=== PATIENT | male | born 1960 | race Caucasian/White ===

== ENCOUNTER → 2017-07-09 13:40 | Outpatient (CLI) | payer OTHER ==
[2013-09-16 15:46] VITALS: BMI 39.8
[~2017-07-09 13:40] MED LIST: FLAGYL500 MG PO; LEVAQUIN500 MG PO; NORCO 10/325 TA1 TA1 PO; PERCOCET 10/3251 TA1 PO; PRINIVIL20 MG PO; XANAX0.5 MG PO
== END | disposition home or self-care (01) ==
LOC: D.RT 13:40
DX: J44.9 Chronic obstructive pulmonary disease, unspecified (principal)

== ENCOUNTER 2020-05-17 17:17 | Observation (INO) | payer OTHER ==
[~2020-05-17] VITALS: Ht 177.8 cm; Wt 143.8 kg
[2020-05-17] MEDS ORDERED: BUMEX2 MG PO (17:37)
[2020-05-17] MEDS ORDERED: KENALOG 0.1 % 115 GM TOPICAL (17:38)
[2020-05-17] MEDS ORDERED: TEMOVATE 0.05%15 G1 TOPICAL (17:38)
[2020-05-17] MEDS ORDERED: CHANTIX 1 MG TAB1 MG PO (17:39)
[2020-05-17] MEDS ORDERED: IPRAT-ALBUT 0.5-3 ML UPD (17:39)
[2020-05-17] MEDS ORDERED: GLUCOPHAGE500 MG PO (17:39)
[2020-05-17] MEDS ORDERED: PROAIR HFA8.5 G1 INH (17:40)
[2020-05-17] MEDS ORDERED: GABAPENTIN300 MG PO (17:40)
[2020-05-17] MEDS ORDERED: BREO ELLIPTA 21 EACH (17:40)
[2020-05-17 17:47] VITALS: BP 101/58; BMI 45.5
--- NOTE | 2020-05-17 18:10 | NUR ---
20GA STARTED TO THE RIGHT FOREARM X1 ATTEMPT. PT SALINE LOCKED. PT DENIES ANY NEEDS. NO S/S OF DISTRESS NOTED. WILL CTM.
--- NOTE | 2020-05-17 18:11 | NUR ---
QUICKSTART, HISTORY, ASSESSMENT AND MED REQ COMPLETE. NO S/S OF DISTRESS NOTED. ORDERS PLACED. WILL CTM. PT IS AAO AND UP AD ISAAC.
[2020-05-17 20:00] VITALS: BP 103/56
[2020-05-17 20:23] LABS: BASOPHILS 0.6 % (0-2); EOSINOPHILS 2.3 % (0-7); HEMATOCRIT 45.8 % (42.0-54.0); HEMOGLOBIN 14.9 g/dL (13.5-17.5); IMMATURE GRANULOCYTES 0.7 % (0-5); LYMPHOCYTES 20.5 % (15-50); MCH 29.6 pg (26.0-34.0); MCHC 32.5 g/dL (31.0-37.0); MCV 90.9 fL (80.0-100.0); MEAN PLATELET VOLUME 9.4 fL (7.4-10.4); MONOCYTES 9.3 % (2-11); NEUTROPHILS 66.6 % (40-80); RBC 5.04 10x6/uL (4.20-6.10); RDW 14.3 % (11.5-14.5); WBC 9.5 10x3/uL (4.8-10.8)
[2020-05-17 20:25] LABS: PLATELET COUNT 284 10x3/uL (130-400)
[2020-05-17 20:39] LABS: CALC OSMOLALITY 278 mosm/kg (275-300); CALCIUM 9.4 mg/dL (8.5-10.1); CARBON DIOXIDE 28.1 mmol/L (21.0-32.0); CHLORIDE - SERUM 100 mmol/L (98-107); CKMB 1.2 U/L (0.0-3.6); CREATINE KINASE 113 UL (21-232); GLUCOSE 129 mg/dL (74-106); POTASSIUM - SERUM 3.5 mmol/L (3.5-5.1); SODIUM 137 mmol/L (136-145); THYROID STIMULATING HORMONE 3.56 uIU/mL (0.36-3.74); UREA NITROGEN 20 mg/dL (7-18); eGFR NON AFRICAN AMERICAN 81 mL/min (90-120)
[2020-05-17 20:52] LABS: TROPONIN-I < 0.017 ng/mL (0.000-0.060)
--- NOTE | 2020-05-17 21:30 | NUR ---
DR GOULD AT BED SIDE TO SEE PT.
--- NOTE | 2020-05-17 21:35 | NUR ---
GONE TO CT VIA BED.
[2020-05-18] VITALS: BP 102/54
[2020-05-18 00:57] LABS: CREATINE KINASE 104 UL (21-232)
[2020-05-18 00:58] LABS: TROPONIN-I < 0.017 ng/mL (0.000-0.060)
--- NOTE | 2020-05-18 03:53 | NUR ---
I have reviewed this patient and I concur with the Shift Assessment completed by the Licensed Practical Nurse today this shift.
[2020-05-18 04:00] VITALS: BP 110/71
[2020-05-18 06:21] LABS: CKMB 0.9 U/L (0.0-3.6); CREATINE KINASE 107 UL (21-232)
[2020-05-18 06:25] LABS: TROPONIN-I < 0.017 ng/mL (0.000-0.060)
[2020-05-18 09:00] VITALS: BP 116/70
--- NOTE | 2020-05-18 09:07 | HP ---
PATIENT: FRANKIE GASCA MEDICAL RECORD: [id number] ACCOUNT: [id number] LOCATION:[address] : 62 ADMISSION DATE: 05/17/20 PCP: WESTON NICOLE HISTORY AND PHYSICAL EXAMINATION CHIEF COMPLAINT: Dyspnea for 2 weeks. HISTORY OF PRESENT ILLNESS: This is a 59-year-old morbidly obese white male who states he has had increased shortness of breath over the last couple of weeks. He states he just cannot walk 100 feet without stopping and breathing heavily. He denies fever or chills. No chest pain, no diaphoresis. I saw him in the office a couple days ago, did a chest x-ray, which did not really show anything significant. I send off for a D-dimer, which was a little elevated at 0.77 (0-0.49 normal). His EKG was stable. I will start him on Bumex, which he states he has had a good response to, but it has not really helped his shortness of breath. He came back in to the office today as scheduled and states he is really no better, so he is assigned to observation for further evaluation of his shortness of breath and elevated D-dimer. PAST MEDICAL HISTORY: He has a history of asthma, followed by Dr. Carbajal, anxiety, type 2 diabetes, hypertension, obesity, sleep apnea on CPAP. He is a smoker, currently taking Chantix to try to stop smoking. PAST SURGICAL HISTORY: He has had hand-assisted sigmoid colectomy for diverticular disease. ALLERGIES: VERSED. FAMILY HISTORY: His father is . He thinks of complications of diabetes. Mother is with history of congestive heart failure. Sister just with breast cancer. HABITS: He is smoking, but trying to stop. He has occasional alcohol, no illicit drug use. SOCIAL HISTORY: He is . 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 HOME MEDICATIONS: Include, 1. Benton 10 p.r.n. pain. 2. Xanax 0.5 two at bedtime. 3. Chantix to help quit smoking. 4. Metformin 500 mg b.i.d. 5. Lisinopril 20 mg once a day. 6. Gabapentin 300 mg at bedtime. 7. DuoNeb via nebulizer 3 times a day. 8. ProAir HFA p.r.n. 9. Breo 1 puff daily. PHYSICAL EXAMINATION: VITAL SIGNS: Temperature 98.1, pulse 85, respirations 20, blood pressure 101/58, O2 sat 93%. GENERAL: He is morbidly obese, 5 feet, 10 inches; 318 pounds with BMI 45.6. SKIN: Warm and dry. HEENT: Grossly within normal limits. HISTORY AND PHYSICAL [id number] FRANKIE GASCA NECK: Supple. No JVD or bruit. HEART: Regular rate and rhythm without murmur. LUNGS: Clear to auscultation. No rales. ABDOMEN: Obese, soft, nontender. EXTREMITIES: No pitting edema. NEUROLOGIC: Intact. ASSESSMENT: 1. Dyspnea with exertion. 2. Smoker. 3. Diabetes. 4. History of hypertension. 5. Sleep apnea. 6. Morbid obesity. CBC has been done and is normal. Basic metabolic panel is done and it is essentially normal. First troponin is normal. TSH is 3.56. He is going now for a CTA of the chest with PE Protocol He will have an echocardiogram done in the morning. Other tests or procedures as warranted. TRANSINT:[id number] Voice Confirmation ID: [id number] DOCUMENT ID: [id number] CHRISTIANO GOULD MD at 0907 CC: [id number] DICTATION DATE: 05/17/202138 AUTOMATED LOGISTICS SPECIALIST: 05/18/205 [facility] [place] [id number] [place] [address]
[2020-05-18 11:18] VITALS: Ht 177.8 cm; Wt 143.8 kg
--- NOTE | 2020-05-18 15:19 | NUR ---
PT DISCHARGED HOME VIA WHEELCHAIR WITH FAMILY. PIV REMOVED WITH CATHETER TIP FULLY INTACT. PT SIGNED PROPER DISCHARGE INSTRUCTIONS AND REMOVED ALL VALUABLES FROM THE ROOM. TELEMETRY REMOVED AND RETURNED.
== END 2020-05-18 15:20 | disposition home or self-care (01) ==
LOC: D.M2 17:17 → OBSVTIME 17:17 → D.M2 17:17
PROVIDERS: ADMIT Family Medicine; ATTEND Family Medicine
DX: R06.00 Dyspnea, unspecified (principal); F17.200 Nicotine dependence, unspecified, uncomplicated; E11.9 Type 2 diabetes mellitus without complications; G47.30 Sleep apnea, unspecified; E66.01 Morbid (severe) obesity due to excess calories; I10 Essential (primary) hypertension

== ENCOUNTER → 2020-06-14 09:50 | Outpatient (CLI) | payer OTHER ==
[2020-05-18 11:18] VITALS: BMI 45.4
[~2020-06-14 09:50] MED LIST changes: +BREO ELLIPTA 21 EACH; +BUMEX2 MG PO; +CHANTIX 1 MG TAB1 MG PO; +GABAPENTIN300 MG PO; +GLUCOPHAGE500 MG PO; +IPRAT-ALBUT 0.5-3 ML UPD; +KENALOG 0.1 % 115 GM TOPICAL; +PROAIR HFA8.5 G1 INH; +TEMOVATE 0.05%15 G1 TOPICAL
== END | disposition home or self-care (01) ==
LOC: D.HCCARDIO 09:30
PROVIDERS: ATTEND Internal Medicine Cardiovascular Disease
DX: I20.9 Angina pectoris, unspecified (principal)

== ENCOUNTER 2020-06-29 06:37 | Day surgery (SDC) | payer OTHER ==
[~2020-06-29] VITALS: Ht 177.8 cm; Wt 141.0 kg
--- NOTE | ~2020-06-29 | HEMODYNAMI ---
PATIENT:FRANKIE GASCA MEDICAL RECORD: [id number] : 62 LOCATION:D.CAT ADMISSION DATE: 06/29/20 Generatedon:06/29/20208:15 Patient name: FRANKIE GASCA Patient #: [id number] SSN: [id number] : 1960 Date of study: 06/29/2020 Page: Of Hemodynamic Procedure Report Patient Data Patient Demographics Procedure consent was obtained First Name: FRANKIE Gender: Male Last Name: ELO : 1960 [facility] Initial: RUTH Age: 59 year(s) Patient #: [id number] Race: SSN: [id number] Additional ID: [id number] Contact details Address: [address] [place] [address] ROAD State: [place] City: [place] Zip code: [address] Past Medical History Performed procedures and imaging results Date Procedure Procedure Results Comments 06/14/2020 Stress testing Positive->Intermediate with SPECT MPI risk Allergies Allergen Reaction Date Comments Reported Other allergy 06/29/2020 SEE CHART FOR OTHERS, VERSED Admission Admission Data Admission Date: 06/29/2020 Admission Time: 6:37 Arrival Date: 06/29/2020 Arrival Time: 0:00 Admit Source: Other Insurance Payor: Private health insurance [facility] #: [id number] Height (in.): 69 BSA: 2.52 (m2) Height (cm.): 175.26 BMI: 46.96 (kg/m2) Weight (lbs.): 318 Weight (kg.): 144.24 Lab Results Lab Result Date: 06/29/2020 Lab Result Time: 0:00 Biochemistry Name Units Result Min Max BUN mg/dl 16 --(---*)-- 7 18 Creatinine mg/dl 0.8 --(-*--)-- 0.6 1.3 eGFR ml/min 90 --(*---)-- 90 120 NONAFRICAN CBC Name Units Result Min Max Hematocrit % 44.8 --(*---)-- 42 54 Hemoglobin g/dl 14.6 --(-*--)-- 13.5 17.5 Procedure Procedure Types Cath Procedure Diagnostic Procedure C [facility] w/Coronaries Sedation Charges Moderate Sedation up to 15 minutes Procedure Description Procedure Date Procedure Date: 06/29/2020 Procedure Start Time: 8:01 Procedure End Time: 8:12 Procedure Staff Name Function Ruth Burnett MD Performing Physician Olimpia Schumacher RT Monitor Darby Ramirez RT Scrub Prashanth Conti RN Nurse Procedure Data Cath Procedure Fluoroscopy Diagnostic fluoroscopy Total fluoroscopy Time: 1.8 time: 1.8 min min Diagnostic fluoroscopy Total fluoroscopy dose: 891 dose: 891 mGy mGy Contrast Material Contrast Material Type Amount (ml) Isovue 300 52 Entry Location Entry Primary Successful Side Size Upsize Upsize Entry Closure Wilcox ccessful Closure Location (Fr) 1 (Fr) 2 (Fr) Remarks Device Remarks Radial Right 6 Fr Mechanical artery Short Compression Estimated blood loss: 5 ml Diagnostic catheters Device Type Used For End Catheter Placement DIAGNOSTIC Bruneau 110cm 5 Multi-vessel Fr catheter ([id number]) Angiography Procedure Complications No complications Procedure Medications Medication Administration Route Dosage Oxygen 6 l/min Lidocaine 2% added to field 20 Heparin Flush Bag added to field 2 bags (1000units/500ml NS) 0.9% NaCl I.V. 100 ml/hr Radial Cocktail I.A. 1 syringe (Verapamil 2mg/Nitro 400mcg/Heparin 1500units) Ativan 1 mg Fentanyl I.V. 50 mcg Fentanyl I.V. 50 mcg Fentanyl I.V. 25 mcg Hemodynamics Rest BSA: 2.52 (m2) HGB: 14.6 (g/dl) O2 Consumption: Estimated: 311.89 (ml/min) O2 Co nsumption indexed: Estimated:123.77 (ml/min/m) Heart Rate: 86 (bpm) Pressure Samples Time Site Value (mmHg) Purpose Heart Use Rate(bpm) 8:05 LV 207/6,18 Snapshot 69 Gradients Valve Time Site Site Mean SEP/DFP Peak To Heart Use 1 2 (mmHg) (sec/min) Peak Rate (mmHg) (bpm) Aortic 8:05 LV AO 39 Snapshots Pre Cath Intra NCS Post Cath Vital Signs Time Heart Resp SPO2 etCO2 NIBP (mmHg) Rhythm Pain Sedation Rate (ipm) (%) (mmHg) Status Level (bpm) 7:45:22 75 23 100 0 163/100(140) NSR 0 (11) 10(A) , No pain 7:49:54 73 25 99 0 150/91(131) NSR 0 (11) 10(A) , No pain 7:54:22 74 19 97 0 152/91(121) NSR 0 (11) 10(A) , No pain 7:58:53 66 13 96 0 156/90(120) NSR 0 (11) 10(A) , No pain 8:03:21 79 11 96 0 159/90(124) NSR 0 (11) 9(A) , No pain 8:07:54 85 13 96 0 150/87(110) NSR 0 (11) 9(A) , No pain 8:12:20 89 16 96 0 150/89(110) NSR 0 (11) 10(A) , No pain Medications Time Medication Route Dose Verified Delivered Reason Notes E ffectiveness by by 7:49:24 Oxygen simple 6 l/min Ruth Buffie used for pt mask Lex Conti RN procedure states sleep apnea 7:50:06 Lidocaine 2% added 20ml Ruth Ruth for local to vial Lex Burnett MD anesthetic field 7:50:43 Heparin Flush added 2 bags Ruth Ruth used for Bag to Lex Burnett MD procedure (1000units/500ml field NS) 7:51:01 0.9% NaCl I.V. 100 Ruth Buffie Per ml/hr Lex Conti RN physician 7:52:52 Ativan IV 1 mg Ruth Buffie for sedation Lex Conti RN 7:55:10 Fentanyl I.V. 50 mcg Ruth Buffie for sedation Lex Conti RN 8:01:59 Fentanyl I.V. 50 mcg Ruth Buffie for sedation Lex Conti RN 8:03:50 Radial Cocktail I.A. 1 Ruth Ruth for (Verapamil syringe Lex Burnett MD vasodilation 2mg/Nitro 400mcg/Heparin 1500units) 8:05:18 Fentanyl I.V. 25 mcg Ruth Buffie for sedation Lex Conti RN Procedure Log Time Note 7:21:29 Informed consent obtained and on chart 7:22:06 Diagnostic Cath Status : Elective 7:22:23 Arrival Date: 06/29/2020 12:00:00 AM 7:22:24 Admit Source: Other 7:22:30 Insurance Payor : Private health insurance 7:22:51 Patient Height : 69 inches 7::55 Patient Weight : 318 lbs 7:24:45 ACC Patient presents with Stable Angina CCS Anginal Class 2--Slight limitation of ordinary activity. 7:24:48 Procedure Status Elective Heart Cath (OP). 7:24:50 Time tracking: Regular hours (M-F 7:00 - 5:00) 7:24:55 Plan of Care:Hemodynamics will remain stable., Cardiac rhythm will remain stable., Comfort level will be maintained., Respiratory function will remain adequate., Patient/ family verbilizes understanding of procedure., Procedure tolerated without complication., Recovers from procedure without complications.. 7:25:20 Stress Test: yes; abnormal ANTERIOR, LATERAL, APICAL,AND INFERIOR 7:25:28 Alarms reviewed by R. N. 7:25:29 Sharps counted by scrub and verified by R.N. 7:25:46 H&P Date Dictated: 06/06/2020 Within 30 days and on chart.. 7:25:46 Pre-procedure instructions explained to patient. 7:25:47 Pre-op teaching completed and patient verbalized understanding. 7:25:49 Family unavailable. 7:25:51 Patient NPO since Midnight. 7:26:22 Patient allergic to Other allergySEE CHART FOR OTHERS, VERSED 7:33:58 Olimpia Schumacher RT(R) sent for patient. Start room use. 7:37:21 Lab Result : Creatinine 0.8 mg/dl 7:37:21 Lab Result : BUN 16 mg/dl 7:37:21 Lab Result : Hematocrit 44.8 % 7:37:21 Lab Result : Hemoglobin 14.6 g/dl 7:37:21 Lab Result : eGFR NONAFRICAN 90 ml/min 7:37:28 Patient received from Pre/Post Procedure Room to CCL 1 Alert and oriented. Tansferred to table in Supine position. 7:37:29 Warm blankets applied, and lucio hugger turned on for patient comfort. 7:37:30 Correct patient and procedure confirmed by team. 7:37:30 ECG and BP/O2 sat monitors applied to patient. 7:37:43 Is the patient allergic to Iodine/contrast media? No. 7:37:45 Was the patient premedicated? N/A 7:37:48 Is patient on blood thinner?No 7:37:50 Patient diabetic? Yes. 7:37:51 If diabetic: On Metformin? N/A 7:37:54 ----Pre-sedation anethsthesia assessment.---- 7:37:57 Previous problem with sedation/anesthesia? No ? 7:37:58 Snore? Yes 7:37:59 Sleep apnea? Yes 7:38:01 Deviated septum? No 7:38:02 Opens mouth fully? Yes 7:38:03 Sticks out tongue? Yes 7:38:10 Airway obstruction? No ? 7:38:13 Dentures? Yes IN TIGHT 7:38:19 Lab results completed and on chart. 7:38:29 IV patent on arrival in left antecubital with 0.9% NaCl at [facility]. 7:38:33 Patient pain scale 0/10 ?. 7:38:37 Pre procedure: right dorsailis pedis pulse 2+ Normal; easily identifiable; not easily obliterated 7:38:39 Modified Virgil's test Ulnar < 7 seconds 7:43:56 Vital chart was started 7:43:57 Full Disclosure recording started 7:43:58 Baseline sample Acquired. 7:44:05 Rhythm: sinus rhythm 7:49:24 Oxygen 6 l/min simple mask was administered by Prashanth Conti RN; used for procedure; pt states sleep apnea Verbal order read back and verified. 7:50:06 Lidocaine 2% 20ml vial added to field was administered by Ruth Burnett MD; for local anesthetic; Verbal order read back and verified. 7:50:28 Physician arrived 7:50:29 --------ALL STOP TIME OUT------ 7:50:30 Final Timeout: patient, procedure, and site verified with staff and physician. All members of the team are in agreement. 7:50:32 Right Radial & Right Groin site verified by team. 7:50:35 Fire Safety Assessment: A--An alcohol-based skin anteseptic being used preoperatively., C--Open oxygen or nitrous oxide is being used., D--An ESU, laser, or fiber-optic light is being used. 7:50:39 Physical assessment completed. ASA score P 2 - A patient with mild systemic disease as per Ruth Burnett MD. 7:50:43 Heparin Flush Bag (1000units/500ml NS) 2 bags added to field was administered by Ruth Burnett MD; used for procedure; Verbal order read back and verified. 7:51:01 0.9% NaCl 100 ml/hr I.V. was administered by Prashanth Conti RN; Per physician; Verbal order read back and verified. 7:52:09 1) 90+ Normal kidney functon but urine findings or structural abnormalities or genetic trait point to kidney disease. 7:52:12 Maximum allowable contrast dose (3.7 X eGFR X 0.75)249 ml. 7:52:24 Sedation plan: IV Moderate Sedation Medication:Fentanyl 7:52:28 Use device set Radial Dx or PCI 7:52:30 ACIST Syringe (75757) opened to sterile field. 7:52:30 Medline Cath Pack ([id number]) opened to sterile field. 7:52:30 Bag Decanter (2002) opened to sterile field. 7:52:31 ACIST Hand Control (13939) opened to sterile field. 7:52:31 ACIST Manifold (08535) opened to sterile field. 7:52:31 Tegaderm 4 x 4 (1626W) opened to sterile field. 7:52:32 MBrace Wrist Support ([id number]) opened to sterile field. 7:52:33 NEEDLE Cook 21G 4cm Radial (U90992) opened to sterile field. 7:52:35 EMERALD Guide Wire (402-099) opened to sterile field. 7:52:35 SHEATH 6FR RAIN (7063096) opened to sterile field. 7:52:44 Baseline sample Acquired. 7:52:52 Ativan 1 mg IV was administered by Prashanth Conti RN; for sedation; Verbal order read back and verified. 7:53:04 Right Radial & Right Groin area was prepped with chlora-prep and draped in sterile fashion 7:55:10 Fentanyl 50 mcg I.V. was administered by Prashanth Conti RN; for sedation; Verbal order read back and verified. 8:01:27 Procedure started. 8:01:31 Local anesthetic to right radial artery with Lidocaine 2% by Ruth Burnett MD.INITIAL ACCESS ONLY 8:01:59 Fentanyl 50 mcg I.V. was administered by Prashanth Conti RN; for sedation; Verbal order read back and verified. 8:03:07 A 6 Fr Short sheath was inserted into the Right Radial artery 8:03:50 Radial Cocktail (Verapamil 2mg/Nitro 400mcg/Heparin 1500units) 1 syringe I.A. was administered by Ruth Burnett MD; for vasodilation; Verbal order read back and verified. 8:03:50 A DIAGNOSTIC Bruneau 110cm 5 Fr catheter ([id number]) was advanced over the wire and used for Multi-vessel Angiography. 8:05:11 LV hemodynamics recorded. 8:05:12 LV gram done using MORRISON 8:05:15 Injector settings: Ml/sec: 5, Volume: 15, 8:05:18 Fentanyl 25 mcg I.V. was administered by Prashanth Conti RN; for sedation; Verbal order read back and verified. 8:05:28 EF : 60 % 8:06:03 LCA angiography performed. 8:06:06 Injector settings: Ml/sec: 3, Volume: 6, 8:07:54 RCA angiography performed. 8::57 Injector settings: Ml/sec: 3, Volume: 6, 8:08:24 ACCDominant side:Co-Dominant 8:08:28 Catheter removed. 8:09:01 ZEPHYR LARGE TR BAND (352555) opened to sterile field. 8:09:42 Sheath removed intact; hemostasis achieved with Mechanical Compression to the Right Radial artery. 8:09:45 Procedure ended.(Physican Out) 8:10:12 Fluoroscopy time 01.80 minutes. 8:10:22 Fluoroscopy dose: 891 mGy 8:10:22 Flurop Dose total: 891 8:10:44 Dose Area Product 11908 mGy/cm. 8:10:48 Contrast amount:Isovue 300 52ml. 8:10:49 Maximum allowable dose exceeded? No. 8:10:52 Sharps counted by scrub and verified by R.N. 8:10:54 Covina band inflated with 11cc of air. 8:10:56 Insertion/operative site no bleeding no hematoma. 8:11:01 Post right radial artery:stable 8:11:03 Post Procedure Pulses reassessed and unchanged 8:11:08 Post procedure rhythm: unchanged. 8:11:36 Estimated blood loss: 5 ml 8:11:38 Post procedure instruction explained to patient.Patient verbalizes understanding. 8:11:39 Patient needs reinforcement of post procedure teaching. 8:12:21 Procedure type changed to Cath procedure, Diagnostic procedure, LHC, [facility] w/Coronaries, Sedation Charges, Moderate Sedation up to 15 minutes 8:12:22 Procedure and supply charges have been captured, reviewed, submitted and are correct. 8:12:27 Procedure Complication : No complications 8:12:31 Vital chart was stopped 8:12:32 [facility] Findings: mild to moderate CAD (<70%) 8:12:34 Operative report dictated upon procedure completion. 8:12:34 See physician's report for complete and final results. 8:12:36 Report given to Pre/Post Procedure Room. 8:12:38 Patient transfered to Pre/Post Procedure Room with Stretcher. 8:12:40 Procedure ended. 8:12:40 Full Disclosure recording stopped 8:12:44 End room use (Document Last) Device Usage Item Name Manufacture Quantity Catalog Hospital Part Current Minima l Lot# / Number Charge Number Stock Stock Serial# Code ACIST Acist 1 84423 [id number] [id number] 20 Syringe Medical (70372) Systems Inc Medline Medline 1 [id number] [id number] 36716 507492 5 Cath Pack ([id number]) Bag Microtek 1 2001S 445419 39054 306346 5 Decanter Medical Inc. (2001S) ACIST Hand Acist 1 38815 552375 590784 110283 5 Control Medical (23885) Systems Inc ACIST Acist 1 45567 917459 953537 762013 5 Manifold Medical (76159) Systems Inc Tegaderm 4 3M 1 1626W 434480 260257 000093 5 x 4 (1626W) MBrace Advanced 1 140-0250-00 990053 46054 179814 5 Wrist Vascular Support Dynamics ([id number]) NEEDLE Cook Cook Medical 1 M95332 581306 655268 654356 5 21G 4cm Radial (X44394) EMERALD Cardinal 1 502-455 473200 143682 820426 5 Guide Wire [facility] (119-455) SHEATH 6FR Cardinal 1 [id number] 787939 3393049 516141 5 [facility] (1484885) DIAGNOSTIC Terumo 1 40-5013 672703 670124 035986 5 Bruneau 110cm 5 Fr catheter (100745) ZEPHYR Cardinal 1 837022 066808 7143686 752271 5 LARGE TR Health BAND (661641) Signature Audit Vale Stage Time Signature Unsigned Intra-Procedure 06/29/2020 Olimpia Schumacher 8:13:33 AM RT(R) Intra-Procedure 06/29/2020 Prashanth Conti RN 8:14:32 AM Intra-Procedure 06/29/2020 Ruth Burnett MD 8:15:24 AM [place] [id number] [place] [address]
[2020-06-29 07:10] VITALS: BP 158/89; Ht 177.8 cm; Wt 141.0 kg
[2020-06-29 07:27] LABS: BASOPHILS 0.6 % (0-2); HEMATOCRIT 44.8 % (42.0-54.0); HEMOGLOBIN 14.6 g/dL (13.5-17.5); IMMATURE GRANULOCYTES 1.2 % (0-5); LYMPHOCYTES 24.8 % (15-50); MCH 29.3 pg (26.0-34.0); MCHC 32.6 g/dL (31.0-37.0); MCV 89.8 fL (80.0-100.0); MEAN PLATELET VOLUME 9.5 fL (7.4-10.4); MONOCYTES 10.2 % (2-11); NEUTROPHILS 60.2 % (40-80); PLATELET COUNT 323 10x3/uL (130-400); RBC 4.99 10x6/uL (4.20-6.10); RDW 14.1 % (11.5-14.5); WBC 7.7 10x3/uL (4.8-10.8)
[2020-06-29 07:28] LABS: ALT (SGPT) 39 U/L (10-68); CALC OSMOLALITY 272 mosm/kg (275-300); CALCIUM 9.2 mg/dL (8.5-10.1); CARBON DIOXIDE 28.5 mmol/L (21.0-32.0); CHLORIDE - SERUM 99 mmol/L (98-107); CHOL - HDL RATIO 4.7 ratio (2.3-4.9); CHOLESTEROL, TOTAL 205 mg/dL (0-200); CREATININE - SERUM 0.8 mg/dL (0.6-1.3); GLUCOSE 102 mg/dL (74-106); HDL CHOLESTEROL 44 mg/dL (32-96); LDL CHOLESTEROL 122 mg/dL (0-100); LDL-HDL RATIO 2.8 ratio (1.5-3.5); SODIUM 136 mmol/L (136-145); TRIGLYCERIDE 199 mg/dL (30-200); UREA NITROGEN 16 mg/dL (7-18); eGFR NON AFRICAN AMERICAN > 90 mL/min (90-120)
[2020-06-29 07:30] LABS: POTASSIUM - SERUM 4.7 mmol/L (3.5-5.1)
--- NOTE | 2020-06-29 08:22 | NUR ---
PT ARRIVED BY STRETCHER. PLACED ON MONITORS. ASSESSMENT COMPLETED. VSS AT THIS TIME. FAMILY AT BEDSIDE.
--- NOTE | 2020-06-29 08:37 | NUR ---
RIGHT WRIST Z BAND IN PLACE NO BLEEDING/HEMATOMA NOTED PT RESTING COMFORTABLY AT THIS TIME. FAMILY AT BEDSIDE
--- NOTE | 2020-06-29 09:07 | NUR ---
PT VOIDED 2OO CC OF CLEAR YELLOW URINE IN URINAL WITHOUT DIFFICULTY. RIGHT WRIST Z BAND IN PLACE. NO BLEEDING/HEMATOMA NOTED. CALL LIGHT WITHIN REACH. FAMILY AT BEDSIDE.
--- NOTE | 2020-06-29 09:40 | NUR ---
RIGHT WRIST Z BAND IN PLACE. NO BLEEDING/HEMATOMA NOTED. CALL LIGHT WITHIN REACH. VSS AT THIS TIME. PT DENIES NAUSEA/PAIN. TOLERATING SIPS OF WATER AT THIS TIME.
--- NOTE | 2020-06-29 10:00 | NUR ---
2cc OF AIR REMOVED FROM Z BAND. NO BLEEDING/HEMATOMA NOTED. PT SET UP WITH SANDWICH TRAY. DENIES NAUSEA/PAIN AT THIS TIME. FAMILY AT BEDSIDE. CALL LIGHT WITHIN REACH.
--- NOTE | 2020-06-29 10:15 | NUR ---
4cc OF AIR REMOVED FROM Z BAND. NO BLEEDING/HEMATOMA NOTED. TOLERATING WELL. VSS AT THIS TIME. FAMILY AT BEDSIDE. CALL LIGHT WITHIN REACH.
--- NOTE | 2020-06-29 10:30 | NUR ---
4 CC OF AIR REMOVED FROM Z BAND. NO BLEEDING/HEMATOMA NOTED. CALL LIGHT WITHIN REACH. PT RESTING COMFORTABLY. VSS AT THIS TIME.
--- NOTE | 2020-06-29 10:45 | NUR ---
Z BAND REMOVED AND DRESSING APPLIED. NO BLEEDING/HEMATOMA NOTED. PIV D/C'D WITH CATH TIP INTACT. TOLERATED WELL. PT INSTRUCTED TO GET UP AND DRESSED AT THIS TIME. FAMILY AT BEDSIDE.
--- NOTE | 2020-06-29 10:55 | NUR ---
DISCUSSED DISCHARGE INSTRUCTIONS WITH PT AND PT'S FAMILY. THEY VOICED UNDERSTANDING.
--- NOTE | 2020-06-29 11:00 | NUR ---
PT TO RESTROOM. VOIDED WITHOUT DIFFICULTY. TAKEN OUT TO VEHICLE BY WHEELCHAIR. NO S/S OF DISTRESS NOTED. ALL BELONGINGS AND PAPERWORK IN HAND.
== END 2020-06-29 11:00 | disposition home or self-care (01) ==
LOC: D.CATH 06:37
PROVIDERS: ATTEND Internal Medicine Cardiovascular Disease
DX: I20.9 Angina pectoris, unspecified (principal); R94.39 Abnormal result of other cardiovascular function study; I10 Essential (primary) hypertension; Z72.0 Tobacco use; R06.00 Dyspnea, unspecified; R53.83 Other fatigue